=== PATIENT | female | born 1950 | race African-American/Black ===

== ENCOUNTER 2022-06-28 08:06 | Day surgery (SDC) | payer MEDICARE ==
[~2022-06-28] VITALS: Ht 167.6 cm; Wt 95.2 kg
[2022-06-28 08:39] VITALS: BP 134/92; PULSE 62; TEMP 96.9
[2022-06-28] MEDS ORDERED: SINGULAIR 110 MG/TAB PO ×2 (08:43→08:47)
[2022-06-28] MEDS ORDERED: NORVASC 5MG5 MG/TAB PO (08:43)
[2022-06-28] MEDS ORDERED: NIZORAL SHAMPO120 M1 TP (08:44)
[2022-06-28] MEDS ORDERED: MASON NATURAL2000 IU PO (08:45)
[2022-06-28] MEDS ORDERED: OTEZLA PO (08:45)
[2022-06-28] MEDS ORDERED: MOBIC15 MG PO (08:46)
[2022-06-28] MEDS ORDERED: TEMOVATE OINT30 GM TOP (08:46)
[2022-06-28 10:15] VITALS: BP 112/72; PULSE 67; TEMP 97; TEMP 98
--- NOTE | 2022-06-28 10:15 | NUR ---
PT TO BAY [facility] VIA CART FROM [facility] ROOM, WALKED TO CHAIR, GAIT STEADY, GRANDAUGHTER IN ROOM. INTO VISIT WITH PT ON RESULTS, CALL LIGHT IN REACH
--- NOTE | 2022-06-28 10:15 | NUR ---
pt to bay 8 via cart from [facility] room, pt walked to chair, grand daughter in room, call light in reach takes snack
[2022-06-28 10:30] VITALS: BP 117/94; PULSE 55
[2022-06-28 10:45] VITALS: BP 121/65; PULSE 56
--- NOTE | 2022-06-28 10:45 | NUR ---
Dr here to see pt and answer questions, reviewed discharge inst. with pt on activity, followup and precautions with verbal understanding. iv d'cd intact, pt up in room dressed then discharged via w/c to car with family
== END 2022-06-28 10:45 | disposition home or self-care (01) ==
LOC: SDCO 08:06
DX: Z12.11 Encounter for screening for malignant neoplasm of colon (principal); K57.30 Diverticulosis of large intestine without perforation or abscess without bleeding; K64.0 First degree hemorrhoids; K62.89 Other specified diseases of anus and rectum
CPT/HCPCS: J2704; J7030